=== PATIENT | female | born 1970 | race Caucasian/White ===

== ENCOUNTER 2016-06-04 03:50 | Emergency (ER) | payer SELFPAY ==
[2016-06-04] MEDS ORDERED: diphenhydrAMINE 50 MG/ML SDV IVPUSH ONE (04:03)
[2016-06-04] MEDS ORDERED: methylPREDNISolone Sodium Succinate 125 MG/2 ML SDV IVPUSH ONE (04:03)
[2016-06-04] MEDS ORDERED: EPINEPHrine 1:1000 1 MG/ML SDV SUBCUT ONE (04:04)
[2016-06-04] MEDS ORDERED: Sodium Chloride 0.9% 1,000 ML IV ONE (04:05)
[2016-06-04] MEDS ORDERED: Albuterol/Ipratropium 3.0-0.5 MG/3 ML Neb Soln NEB ONE (04:07)
--- NOTE | 2016-06-04 04:20 | EDM.PDOC ---
[id number]: 06/04/16 03:50 Source: Reports: Patient, Family History Limitations: Reports: Respiratory distress - History of Present Illness INITIAL COMMENTS - FREE TEXT/NARRATIVE: 45 years old w f came to the ed due to sudden onset of SOB and tongue swelling. Pt is allergic to peanuts and codeine. She assumes the sauce she ate had peanuts in it, pt denies other acute medical issues. Symptom Onset Date: 06/04/16 Symptom Onset Time: 00:05 Timing/Duration: Reports: Hour(s): Location, Skin: Reports: neck, chest Associated features: Reports: swelling (tongue, throat) Quality: Reports: Dull, Itching, Pressure, Same as previous episode Severity: moderate Known identified source: yes Place: home Associated symptoms: Reports: shortness of breath Improves with: Reports: Medication Place of Occurrence: Reports: home Suspected Etiology: Reports: food (peanuts containibf ) Recent Medical Care: no - Related Data Allergies/ADRs: Allergies Allergy/AdvReac Type Severity Reaction Status Date / Time codeine Allergy Hives Verified 06/04/16 04:07 peanut Allergy Hives Verified 06/04/16 04:07 Home Meds: Home Meds predniSONE 20 mg PO ONETIME #5 tablet 06/04/16 [Rx] ED ROS ALLERGIC REACTION - Review of Systems Review Of Systems: See Below Constitutional: Reports: no symptoms HEENT: Reports: Throat swelling Respiratory: Reports: Shortness of Breath Cardiovascular: Reports: No symptoms Endocrine: Reports: no symptoms GI/Abdominal: Reports: No symptoms : Reports: no symptoms Musculoskeletal: Reports: no symptoms Skin: Reports: no symptoms Neurological: Reports: No Symptoms Psychiatric: Reports: No symptoms Hematologic/Lymphatic: Reports: no symptoms Immunologic: Reports: no symptoms ED EXAM GENERAL NO PERIP PULSE - Physical Exam Exam: See Below Exam Limited By: Respiratory distress General Appearance: alert, WD/WN, mild distress, moderate distress Eye Exam: bilateral eye: normal inspection Ears: normal external exam, normal canal, hearing grossly normal Nose: normal inspection, normal mucosa Throat/Mouth: Dysphagia, Other (pharynx and tongue edematous) Head: atraumatic, normocephalic Neck: normal inspection, supple, non-tender, full range of motion Respiratory/Chest: respiratory distress, decreased breath sounds, wheezing, prolonged expiration Cardiovascular: normal peripheral pulses, regular rate, rhythm, no edema, no gallop, no JVD GI/Abdominal: normal bowel sounds, soft, non tender, no distention (Female) Exam: Deferred Rectal (Female) Exam: Deferred Back Exam: normal inspection, full range of motion Extremities: normal inspection, normal range of motion, non-tender, no pedal edema Neurological: alert, oriented, CN II-XII intact, normal cognition Psychiatric: normal affect Skin Exam: Warm, Dry, Intact, Normal color Lymphatic: no adenopathy Course - Vital Signs Text/Narrative:: 45 years old w f came to the ed due to sudden onset of SOB and tongue swelling. Pt is allergic to peanuts and codeine. She assumes the sauce she ate had peanuts in it, pt denies other acute medical issues. PE: Exp wheezes, tongue and pharynx edematous Labs: Refused by patient vehemently Impression: angioedema due to peanuts allergy Tx: Epinephrin, benadryl, solu-medrol and NS Reexam: Improved Plan: D/C with instructions Last Recorded V/S: Last Vital Signs Temp 36.5 C 06/04/16 04:00 Pulse 89 06/04/16 04:00 Resp 20 06/04/16 04:00 BP 146/111 H 06/04/16 04:00 Pulse Ox 99 06/04/16 04:00 - Orders/Labs/Meds Meds: Medications Discontinued Medications Generic Name Dose Route Start Last Admin Trade Name Freq PRN Reason Stop Dose Admin Albuterol/Ipratropium 3 ml 06/04/16 04:07 06/04/16 04:26 Duoneb 3.0-0.5 Mg/3 Ml NEB 06/04/16 04:08 3 ml ONETIME ONE Administration Diphenhydramine HCl 50 mg 06/04/16 04:03 06/04/16 04:11 Benadryl IVPUSH 06/04/16 04:04 50 mg ONETIME ONE Administration Epinephrine HCl 0.3 mg 06/04/16 04:04 06/04/16 04:09 Adrenalin 1:1000 SUBCUT 06/04/16 04:05 0.3 mg ONETIME ONE Administration Sodium Chloride 1,000 mls @ 999 mls/hr 06/04/16 04:05 06/04/16 04:00 Normal Saline IV 06/04/16 05:05 999 mls/hr .BOLUS ONE Administration Methylprednisolone Sodium Succinate 125 mg 06/04/16 04:03 06/04/16 04:17 Solu-Medrol IVPUSH 06/04/16 04:04 125 mg ONETIME ONE Administration Departure - Departure Time of Disposition: 11:34 Disposition: Home, Self-Care 01 Condition: good Clinical Impression: Peanut-induced anaphylaxis Qualifiers: Encounter type: initial encounter Qualified Code(s): T78.01XA - Anaphylactic reaction due to peanuts, initial encounter Prescriptions: predniSONE 20 mg PO ONETIME #5 tablet Instructions: Angioedema, [id number] Referrals: PCP,None [Primary Care Provider] - Forms: ED Department Discharge Additional Instructions: Please increase wate intake, please take the meds as recommended, please f/u, come back if your symptoms get worse acutely.
[2016-06-04 04:55] VITALS: BP 146/111
== END 2016-06-04 05:25 | disposition home or self-care (01) ==
LOC: FB.ED 03:50
DX: T78.01XA Anaphylactic reaction due to peanuts, initial encounter (principal); Z88.5 Allergy status to narcotic agent
CPT/HCPCS: 94640; 96361; 96372; 96374; 96375; 99284; J0171; J1200; J2930; J7040; J7620